=== PATIENT | female | born 1980 | race Asian ===

== ENCOUNTER 2020-04-30 10:34 | Outpatient (CLI) | payer OTHER ==
[~2020-04-30 10:34] MED LIST: BENICAR HCT1 TAB PO; BENICAR20 MG PO; CYCL10TA35 PO; MOBIC7.5 M1 PO; NEURONTIN 100M100 MG OR; PREDNISONE10 M1 OR
== END 2020-04-30 19:48 | disposition home or self-care (01) ==
LOC: MAMMO 10:34
DX: N63.20 Unspecified lump in the left breast, unspecified quadrant (principal)
CPT/HCPCS: G0279

== ENCOUNTER 2020-05-12 15:36 | Emergency (ER) | payer OTHER ==
[~2020-05-12] VITALS: Ht 154.9 cm; Wt 81.6 kg
[2020-05-12] MEDS ORDERED: CLON0.1T16 PO (16:25)
[2020-05-12 21:24] VITALS: BP 173/89; TEMP 98.9
== END 2020-05-12 21:24 | disposition home or self-care (01) ==
LOC: ED 15:36
DX: I10 Essential (primary) hypertension (principal)
CPT/HCPCS: 99282

== ENCOUNTER 2020-10-16 09:58 | Outpatient (CLI) | payer OTHER ==
[~2020-10-16 09:58] MED LIST changes: +CLON0.1T16 PO
== END 2020-10-16 20:08 | disposition home or self-care (01) ==
LOC: MAMMO 09:58
PROVIDERS: ATTEND Nurse Practitioner
DX: Q85.9 Phakomatosis, unspecified (principal); N64.59 Other signs and symptoms in breast
CPT/HCPCS: G0279

== ENCOUNTER 2021-03-19 09:02 | Outpatient (CLI) | payer OTHER | END 2021-03-19 23:17 | disposition home or self-care (01) | LOC: RAD 09:02 | PROVIDERS: ATTEND Physician Assistant | DX: I10 Essential (primary) hypertension (principal); E11.9 Type 2 diabetes mellitus without complications ==

== ENCOUNTER 2021-04-13 13:30 | Outpatient (CLI) | payer OTHER | END 2021-04-13 21:50 | disposition home or self-care (01) | LOC: MAMMO 13:30 | PROVIDERS: ATTEND Nurse Practitioner | DX: Q85.9 Phakomatosis, unspecified (principal) | CPT/HCPCS: G0279 ==

== ENCOUNTER 2021-09-08 08:08 | Outpatient (CLI) | payer OTHER | END 2021-09-08 21:17 | disposition home or self-care (01) | LOC: CT 08:08 | PROVIDERS: ATTEND Internal Medicine | DX: R10.30 Lower abdominal pain, unspecified (principal) ==

== ENCOUNTER 2021-10-28 11:25 | Day surgery (SDC) | payer OTHER ==
[2021-10-26 11:37] LABS: PLATELET COUNT 281 K/uL (152-353)
[2021-10-26 11:50] LABS: POTASSIUM 3.9 mmol/L (3.6-5.2)
[~2021-10-28] VITALS: Ht 30.5 cm; Wt 0.5 kg
== END 2021-10-28 16:11 | disposition home or self-care (01) ==
LOC: OR 11:25
PROVIDERS: ATTEND Internal Medicine Gastroenterology
PROC: 0DJD8ZZ Inspection of Lower Intestinal Tract, Via Natural or Artificial Opening Endoscopic (ICD-10-PCS; principal; 2021-10-28)
DX: K57.30 Diverticulosis of large intestine without perforation or abscess without bleeding (principal); K64.8 Other hemorrhoids; R10.32 Left lower quadrant pain; K92.1 Melena; K59.09 Other constipation; Z20.822 Contact with and (suspected) exposure to COVID-19
CPT/HCPCS: 80053; 85027; 87635; J0360; J2704; U0003

== ENCOUNTER 2022-03-07 14:44 | Emergency (ER) | payer OTHER ==
[~2022-03-07] VITALS: Ht 152.4 cm; Wt 79.4 kg
[2022-03-07 15:22] LABS: PLATELET COUNT 298 K/uL (152-353)
[2022-03-07 15:32] LABS: POTASSIUM 3.5 mmol/L (3.6-5.2)
[2022-03-07 15:39] LABS: PARTIAL THROMBOPLASTIN TIME 24.3 SECONDS (24.5-33.6)
[2022-03-07 17:15] VITALS: BP 169/91; TEMP 98.4
== END 2022-03-07 17:17 | disposition home or self-care (01) ==
LOC: ED 14:44
PROVIDERS: Hospitalist
DX: I16.0 Hypertensive urgency (principal)
CPT/HCPCS: 36415; 80053; 82550; 83880; 84484; 85027; 85610; 85730; 93005; 96374; 96375; 99284; J0360; J1885; J2270; J2405

== ENCOUNTER → 2022-03-10 | Outpatient (CLI) | payer OTHER | LOC: LABW 09:49 | PROVIDERS: ATTEND Internal Medicine | DX: D64.9 Anemia, unspecified (principal) | CPT/HCPCS: 36415; 82607; 82728; 82747; 83540; 83550 ==

== ENCOUNTER 2023-05-29 08:46 | Emergency (ER) | payer OTHER ==
[~2023-05-29] VITALS: Ht 152.4 cm; Wt 79.4 kg
[2023-05-29 08:46] VITALS: TEMP 98
[2023-05-29 09:15] LABS: PLATELET COUNT 304 K/uL (152-353)
[2023-05-29 09:27] LABS: POTASSIUM 3.3 mmol/L (3.6-5.2)
[2023-05-29 10:35] VITALS: BP 205/118
== END 2023-05-29 10:35 | disposition short-term general hospital (02) ==
LOC: ED 08:46
PROVIDERS: Family Medicine
DX: I63.9 Cerebral infarction, unspecified (principal); I10 Essential (primary) hypertension
CPT/HCPCS: 36415; 80053; 84484; 85027; 93005; 96374; 96376; 99285; J0360